=== PATIENT | male | born 1960 | race Two or more races ===

== ENCOUNTER 2017-11-11 15:57 | Inpatient (IN) | payer OTHER ==
[2017-11-11 16:14] VITALS: BMI 65.7
[2017-11-11] MEDS ORDERED: Sodium Chloride 0.9% 1,000 ML IV STA ×4 (16:33→23:13)
[2017-11-11 16:36] LABS: BASO % 0.7 % (0.0-2.0); EOS # 0.2 K/uL (0.0-0.7); EOS % 2.9 % (0.0-4.0); HEMOGLOBIN 8.7 g/dL (12.0-18.0); LYMPH # 2.3 K/uL (1.0-4.3); LYMPH % 36.7 % (20.0-40.0); MEAN CELL VOLUME 108.8 fl (80.0-94.0); MEAN CORPUSCULAR HGB CONC 34.9 g/dL (33.0-37.0); MEAN PLATELET VOLUME 9.8 fl (7.2-11.7); MONO # 0.4 K/uL (0.0-0.8); MONO % 5.8 % (0.0-10.0); NEUT # 3.4 K/uL (1.8-7.0); NEUT % 53.9 % (50.0-75.0); NRBC % 0.2 % (0.0-0.0); RBC 2.28 Mil/uL (4.40-5.90); RED CELL DISTRIBUTION WIDTH 13.5 % (11.5-14.5); WHITE BLOOD COUNT 6.4 K/uL (4.8-10.8)
[2017-11-11 16:38] LABS: VENOUS BLOOD GAS BASE EXCESS -2.2 mmol/L (0.0-2.0); VENOUS BLOOD GAS PCO2 47 mmHg (40-60); VENOUS BLOOD GAS PO2 40 mm/Hg (30-55); VENOUS BLOOD PH 7.32 (7.32-7.43)
[2017-11-11 16:38] LABS: INR 1.3; PROTHROMBIN TIME 14.5 Seconds (9.8-13.1)
[2017-11-11 16:41] LABS: PARTIAL THROMBOPLASTIN TIME 25.2 Seconds (25.6-37.1)
[2017-11-11 16:45] LABS: ALBUMIN 3.1 g/dL (3.5-5.0); ALT/SGPT 47 U/L (21-72); AST/SGOT 127 U/L (17-59); BLOOD UREA NITROGEN 16 mg/dl (9-20); CALCIUM 7.8 mg/dL (8.4-10.2); GFR NON-AFRICAN AMERICAN > 60
--- NOTE | 2017-11-11 17:05 | CT ---
Date of service: 11/11/2017 PROCEDURE: CT HEAD WITHOUT CONTRAST. HISTORY: r/o ICH COMPARISON: None available. TECHNIQUE: Axial computed tomography images were obtained through the head/brain without intravenous contrast. Radiation dose: Total exam DLP = 858.77 mGy-cm. This CT exam was performed using one or more of the following dose reduction techniques: Automated exposure control, adjustment of the mA and/or kV according to patient size, and/or use of iterative reconstruction technique. FINDINGS: HEMORRHAGE: No intracranial hemorrhage. BRAIN: There is no mass effect with minimal expansion of the ventricular sulcal sternal spaces appreciated throughout the cerebrum compatible with minimal diffuse cerebral atrophy. Good corticomedullary differentiation is appreciated throughout. Midline brain anatomy is unremarkable. Evaluation of posterior fossa reflects a 1.6 x 2.2 x 1.5 cm partially calcified lesion (transverse by anteroposterior by superoinferior dimensions) at the medial left cerebellum approximating the dentate nucleus there is no associated edema related to this cyst focus with the right dentate nucleus unremarkable appearing. This could reflect simply amorphous dentate nuclei calcification though other lesions such as postinfectious or inflammatory processes, intraparenchymal meningioma or angiomatous meningioma. Vascular and other etiologies are possible. Follow-up MRI is advised without contrast if there is no prior evaluation of this finding. VENTRICLES: Unremarkable. No hydrocephalus. CALVARIUM: Unremarkable. PARANASAL SINUSES: Unremarkable as visualized. No significant inflammatory changes. MASTOID AIR CELLS: Unremarkable as visualized. No inflammatory changes. OTHER FINDINGS: None. IMPRESSION: 1. 2.2 cm partially calcified lesion is identified at the left cerebellum partially involving the dentate nucleus with the right cerebellar hemisphere unremarkable. This is a nonspecific finding of indeterminate but potentially broad differential diagnostic etiology. Please see discussion above. Follow-up brain MRI without contrast is recommended under nonacute basis if not already evaluated. 2. No definite acute intracranial findings. Limited diffuse cerebral atrophy is appreciated, age-appropriate.
[2017-11-11] MEDS ORDERED: Tranexamic Acid 1,000 MG in Sodium Chloride 0.9% 100 ML IVPB STA ×3 (17:10→17:13)
[2017-11-11] MEDS ORDERED: Octreotide 500 mcg/ml Inj IV STA (17:12)
[2017-11-11] MEDS ORDERED: Sodium Chloride 0.9% 1,000 ML IV SCH (17:30)
--- NOTE | 2017-11-11 17:35 | ED PDOC ---
HPI: General Adult Time Seen by Provider: 11/11/17 16:13 Chief Complaint (Nursing): Syncope Chief Complaint (Provider): I passed out History Per: Patient, EMS, Other (work colleague) Current Symptoms Are (Timing): Intermittent Episodes Severity: Severe Additional Complaint(s): 57yo male hx HTN presents from his office where he had episode of syncope, falling hitting head, with blood noted in oropharynx. States this morning he felt dizzy and had blood in his stool. Denies abdominal pain, chest pain or headache. Does note dyspnea and dizziness currently. ALS EMS performed 12L EKG sinus tach w mild ST changes. Denies NSAID use or recent epigastric pain. Admits to drinking alcohol 3-4 days per week but denies withdrawal symptoms. Past Medical History Reviewed: Historical Data, Nursing Documentation, Vital Signs Vital Signs: Last Vital Signs Temp 99.3 F 11/12/17 08:00 Pulse 90 11/12/17 10:00 Resp 20 11/12/17 10:00 BP 112/62 11/12/17 10:00 Pulse Ox 100 11/12/17 10:00 - Medical History PMH: HTN - Surgical History Other surgeries: denies abd surgeries, +recent oral surgery - Family History Family History: States: Unknown Family Hx - Living Arrangements Living Arrangements: Other - Social History Current smoker - smoking cessation education provided: No Alcohol: Occasional Drugs: Denies - Home Medications Home Medications: Ambulatory Orders Medication Instructions Recorded Chlorthalidone [Hygroton] 12.5 mg PO DAILY 11/11/17 - Allergies Allergies/Adverse Reactions: Allergies Allergy/AdvReac Type Severity Reaction Status Date / Time No Known Allergies Allergy Verified 11/11/17 16:20 Review of Systems Constitutional: Positive for: Weakness Eyes: Negative for: Conjunctivae Inflammation ENT: Negative for: Throat Pain Cardiovascular: Positive for: Palpitations, Light Headedness. Negative for: Chest Pain Respiratory: Positive for: Shortness of Breath Gastrointestinal: Positive for: Abdominal Pain (mild), Hematochezia, Hematemesis Musculoskeletal: Negative for: Neck Pain Skin: Negative for: Rash, Lesions Neurological: Positive for: Weakness, Change in Speech, Dizziness Psych: Negative for: Depression Physical Exam - Reviewed Nursing Documentation Reviewed: Yes Vital Signs Reviewed: Yes - Physical Exam Appears: Positive for: Uncomfortable Head Exam: Positive for: ATRAUMATIC, NORMAL INSPECTION, NORMOCEPHALIC Skin: Positive for: Warm, Diaphoresis, Pallor Eye Exam: Positive for: EOMI, Normal appearance, PERRL ENT: Positive for: Normal ENT Inspection Neck: Positive for: Normal, Painless ROM Cardiovascular/Chest: Positive for: Tachycardia Respiratory: Positive for: CNT, Normal Breath Sounds Gastrointestinal/Abdominal: Positive for: Soft. Negative for: Tenderness Back: Positive for: Normal Inspection Rectal: Positive for: Blood Streaked Stool, Other (+gross blood at anus + hemorrhoid) Extremity: Positive for: Normal ROM Neurologic/Psych: Positive for: Alert, Oriented. Negative for: Motor/Sensory Deficits - Laboratory Results Result Diagrams: 11/12/17 04:20 11/12/17 04:20 - ECG ECG: Positive for: Interpreted By Me ECG Rhythm: Positive for: Sinus Tachycardia, Nonspecific Changes Rate: 107 O2 Sat by Pulse Oximetry: 100 Pulse Ox Interpretation: Normal - Radiology X-Ray: Interpreted by Or X-Ray Interpretation: No Acute Disease - CT Scan/US CT brain Other Rad Studies (CT/US): Radiology Report Reviewed (neg bleed, rec MRI brain for calcified lesion- to handle on floor nonemergently) - Physician Consult Information Physician Contacted: Mane Saenz Outcome Of Conversation: will see in ED - Critical Care Total Time (In Min): 75 Medical Decision Making Medical Decision Making: patient required immediate bedside attention for hypotension and tachycardia Further history from ALS paramedics, received about 250ml NS prehospital, BP slightly improved on arrival but remained diaphoretic ?hx head trauma with fall/ LOC and reported blood in nares/ oropharyx, CT brain ordered r/o ICH on arrival +blood at rectum, concern for acute GIB, IVF resuscitation w cardiac monitoring and PRBC cross match. labs reviewed revealing anemia, mild thrombocytopenia, neg trop, elevated lactate EKG sinus tach with likely rate related changes CXR reviewed no infiltrate or free air noted Attempted placement of NGT but had large episode hematemesis during procedure, suctioned, maintained airway. D/w PMD Dr Aguilar, requested Dr Saenz GI stat consult- discussed case, recommended octrotide, protonix drip, also given TXA. Patient had brief episode of dysarthria during TXA hence infusion stopped, unclear if related to infusion or mild cerebral ischemia from anemia and hypotension. Patient then had several large melanotic BMs, IVF continued in pressure bags and ONeg blood requested and initiated after consent obtained. BP marginal but mentation normal even asking RN to take picture of himself prior to transfer to OR. ICU Dr Rodgers in ED to see patient, Dr Saenz arrived and I discussed w anesthesia for stat endo in OR. Admit Dr Aguilar Disposition - Clinical Impression Clinical Impression: GI hemorrhage, Hematemesis, Syncope and collapse, Anemia - Patient ED Disposition Is Patient to be Admitted: Yes Counseled Patient/Family Regarding: Studies Performed - Disposition Disposition Time: 17:55 Condition: CRITICAL - Pt Status Changed To: Hospital Disposition Of: Inpatient - Admit Certification Admit to Inpatient:: After my assessment, the patient will require hospitalization for at least two midnights. This is because of the severity of symptoms shown, intensity of services needed, and/or the medical risk in this patient being treated as an outpatient. - POA Present On Arrival: Falls Or Trauma
[2017-11-11] MEDS ORDERED: Succinylcholine 200 mg/10 ml Inj IV ONE (17:52)
[2017-11-11] MEDS ORDERED: Etomidate 20 mg/10ml Inj IV ONE (17:52)
[2017-11-11] MEDS: Pantoprazole 40 MG in Sodium Chloride 0.9% 100 ML IVPB SCH ×3 (18:11→23:14)
[2017-11-11] MEDS ORDERED: Dexamethasone 4 mg/1 ml ONE (18:14)
[2017-11-11] MEDS ORDERED: Sodium Chloride 0.9% 1,000 ML IV ONE ×2 (18:30→19:12)
--- NOTE | 2017-11-11 18:43 | RAD ---
Date of service: 11/11/2017 HISTORY: SOB COMPARISON: No prior. FINDINGS: LUNGS: No active pulmonary disease. PLEURA: No significant pleural effusion identified, no pneumothorax apparent. CARDIOVASCULAR: Normal. OSSEOUS STRUCTURES: No significant abnormalities. VISUALIZED UPPER ABDOMEN: Normal. OTHER FINDINGS: None. IMPRESSION: No active disease.
[2017-11-11] MEDS ORDERED: EPINEPHrine 1 mg/ml (1:1000) Inj ONE (18:53)
--- NOTE | 2017-11-11 19:16 | CP.PCM.CON ---
History of Present Illness - History of Present Illness History of Present Illness: 57 yo male admitted after several episodes of hematemesis and hypotension. No h/ o cirrhosis but drinks beer 2 bottles 4x a week. No other hospitalizations as an adult. Review of Systems - Constitutional Constitutional: absent: Chills - EENT Eyes: absent: Blurred Vision Ears: absent: Decreased Hearing Nose/Mouth/Throat: absent: Epistaxis - Cardiovascular Cardiovascular: absent: Chest Pain - Respiratory Respiratory: absent: Dyspnea - Gastrointestinal Gastrointestinal: Loose Stools, Melena, Vomiting. absent: Abdominal Pain - Genitourinary Genitourinary: absent: Change in Urinary Stream Past Patient History - Past Social History Smoking Status: Light Smoker < 10 Cigarettes Daily - CARDIAC Hx Hypertension: Yes - PSYCHIATRIC Hx Substance Use: No - SURGICAL HISTORY Hx Surgeries: Yes Other/Comment: "oral surgery" Meds Allergies/Adverse Reactions: Allergies Allergy/AdvReac Type Severity Reaction Status Date / Time No Known Allergies Allergy Verified 11/11/17 16:20 - Medications Medications: Current Medications Pantoprazole Sodium 40 mg/ (Sodium Chloride) 100 mls @ 20 mls/hr IVPB Q5H CARMENCITA PRN Reason: 8 MG/HR Last Admin: 11/11/17 18:11 Dose: 20 mls/hr Octreotide Acetate 1,250 mcg/ (Sodium Chloride) 252.5 mls @ 10.1 mls/hr IV .Q24H CARMENCITA; 50 MCG/HR PRN Reason: Protocol Last Admin: 11/11/17 18:13 Dose: 10.1 mls/hr Sodium Chloride (Sodium Chloride 0.9%) 1,000 mls @ 1,000 mls/hr IV .Q1H ONE Stop: 11/11/17 19:29 Last Admin: 11/11/17 18:24 Dose: 1,000 mls/hr Physical Exam - Constitutional Appears: Non-toxic - Head Exam Head Exam: ATRAUMATIC - Eye Exam Pupil Exam: PERRL - ENT Exam ENT Exam: Normal Exam - Neck Exam Neck exam: Positive for: Normal Inspection - Respiratory Exam Respiratory Exam: NORMAL BREATHING PATTERN - Cardiovascular Exam Cardiovascular Exam: REGULAR RHYTHM, +S1, +S2 - GI/Abdominal Exam GI & Abdominal Exam: Normal Bowel Sounds, Soft. absent: Tenderness - Rectal Exam Rectal Exam: Bloody Stool Results - Vital Signs Recent Vital Signs: Last Vital Signs Temp 98.3 F 11/11/17 18:35 Pulse 106 H 11/11/17 18:35 Resp 16 11/11/17 18:35 BP 122/74 11/11/17 18:35 Pulse Ox 100 11/11/17 17:35 - Labs Result Diagrams: 11/11/17 16:20 11/11/17 16:20 Labs: Laboratory Results - last 24 hr 11/11/17 11/11/17 11/11/17 16:07 16:20 16:20 WBC 6.4 RBC 2.28 L Hgb 8.7 L Hct 24.8 L MCV 108.8 H MCH 38.0 H MCHC 34.9 RDW 13.5 Plt Count 125 L MPV 9.8 Neut % (Auto) 53.9 Lymph % (Auto) 36.7 [place] % (Auto) 5.8 Eos % (Auto) 2.9 Baso % (Auto) 0.7 Neut # (Auto) 3.4 Lymph # (Auto) 2.3 [place] # (Auto) 0.4 Eos # (Auto) 0.2 Baso # (Auto) 0.0 PT INR APTT pO2 VBG pH VBG pCO2 VBG HCO3 VBG Total CO2 VBG O2 Sat (Calc) VBG Base Excess VBG Potassium Glucose Lactate FiO2 Crit Value Called To Crit Value Called By Crit Value Read Back Blood Gas Notified Time Sodium 137 Potassium 3.5 L Chloride 105 Carbon Dioxide 21 L Anion Gap 15 BUN 16 Creatinine 1.0 Est GFR ( Amer) > 60 Est GFR (Non-Af Amer) > 60 POC Glucose (mg/dL) 294 H Random Glucose 285 H Calcium 7.8 L Total Bilirubin 0.5 AST 127 H ALT 47 Alkaline Phosphatase 67 Troponin I 0.0150 Total Protein 6.3 Albumin 3.1 L Globulin 3.2 Albumin/Globulin Ratio 1.0 Venous Blood Potassium Alcohol, Quantitative < 10 Blood Type Antibody Screen Crossmatch BBK History Checked 11/11/17 11/11/17 11/11/17 16:20 16:20 16:35 WBC RBC Hgb Hct MCV MCH MCHC RDW Plt Count MPV Neut % (Auto) Lymph % (Auto) [place] % (Auto) Eos % (Auto) Baso % (Auto) Neut # (Auto) Lymph # (Auto) [place] # (Auto) Eos # (Auto) Baso # (Auto) PT 14.5 H INR 1.3 APTT 25.2 L pO2 40 VBG pH 7.32 VBG pCO2 47 VBG HCO3 22.5 VBG Total CO2 25.6 VBG O2 Sat (Calc) 56.0 VBG Base Excess -2.2 L VBG Potassium 3.2 L Glucose 245 H Lactate 4.3 H* FiO2 21.0 Crit Value Called To Dr isabella yo Crit Value Called By 6075 Crit Value Read Back Y Blood Gas Notified Time 1638 Sodium 137.0 Potassium Chloride 105.0 Carbon Dioxide Anion Gap BUN Creatinine Est GFR ( Amer) Est GFR (Non-Af Amer) POC Glucose (mg/dL) Random Glucose Calcium Total Bilirubin AST ALT Alkaline Phosphatase Troponin I Total Protein Albumin Globulin Albumin/Globulin Ratio Venous Blood Potassium 3.2 L Alcohol, Quantitative Blood Type B NEGATIVE Antibody Screen Negative Crossmatch See Detail BBK History Checked No verified bt Assessment & Plan (1) Hematemesis Assessment and Plan: Labs suggest possibility of cirrhosis. protonix and Octreotide given. 3 units blood being tranfused. Will do emergency upper endoscopy for diagnosis and therapeutics Status: Acute
[2017-11-11] MEDS ORDERED: Midazolam 2 MG/2 ML VIAL ONE (19:39)
[2017-11-11] MEDS ORDERED: Propofol 10 mg/ml Inj (20 ML) ONE (19:46)
[2017-11-11] MEDS ORDERED: Liquid Adhesive TOP ONE (19:47)
--- NOTE | 2017-11-11 20:43 | CP.PCM.PN ---
Subjective - Date & Time of Evaluation Date of Evaluation: 11/11/17 Time of Evaluation: 22:22 - Subjective Subjective: 57 yo presents to ER with GI bleed and hemodynamic changes Objective - Vital Signs/Intake and Output Vital Signs (last 24 hours): Temp Pulse Resp BP Pulse Ox 98.3 F 102 H 22 146/90 100 11/11/17 18:55 11/11/17 18:55 11/11/17 18:55 11/11/17 18:55 11/11/17 18:55 Intake and Output: 11/11/17 11/12/17 18:59 06:59 Intake Total 0 850 Balance 0 850 - Medications Medications: Current Medications Pantoprazole Sodium 40 mg/ (Sodium Chloride) 100 mls @ 20 mls/hr IVPB Q5H CARMENCITA PRN Reason: 8 MG/HR Last Admin: 11/11/17 18:11 Dose: 20 mls/hr Octreotide Acetate 1,250 mcg/ (Sodium Chloride) 252.5 mls @ 10.1 mls/hr IV .Q24H CARMENCITA; 50 MCG/HR PRN Reason: Protocol Last Admin: 11/11/17 18:13 Dose: 10.1 mls/hr Sodium Chloride (Sodium Chloride 0.9%) 1,000 mls @ 100 mls/hr IV .Q10H STA Stop: 11/12/17 05:36 - Labs Labs: 11/11/17 16:20 11/11/17 16:20 PT 14.5 Seconds (9.8-13.1) H 11/11/17 16:20 INR 1.3 11/11/17 16:20 APTT 25.2 Seconds (25.6-37.1) L 11/11/17 16:20 Assessment and Plan - Assessment and Plan (Free Text) Assessment: GI Bleed Hypotension Liver dx??? ETOH?? IVF tX GI consult Syncope 2 to above EKG CE
--- NOTE | 2017-11-11 23:16 | CP.PCM.CON ---
History of Present Illness - History of Present Illness History of Present Illness: Attending: Yovani Ko Reason for Consult: Critical care management cCief Complaint: Syncope/ Hematemesis The Patient was seen and examined in the ICU Post EGD HPI: The Hx was obtained from the patient and after review of the medical chart. He is a 57 years Afro[place]Citizen Of [place] who drinks 2-3 drinks 3-4 days a week and has hx of HTN. He was brought to the ED after a Syncope and fall at his office. Blood was noted in his oropharynx. He stated that he was dizzy prior to the fall and had noticed blood in the stool. He also has pain to the left chest wall post fall, no abdominal pain, SOB fever nor dysuria. From the ED the patient was taken directly to the Endoscopic room where EDG was performed by Dr Saenz. PMH: HTN PSH: Oral surgery SH: Alcohol 2-3 drinks 3-4 days/week; No illegal drug use;No Cigarette smoking FH: State's: No known family hx Allergies: NKDA Medication: Reviewed Review of Systems - Constitutional Constitutional: Headache. absent: Anorexia, Chills - EENT Eyes: Requires Corrective Lenses. absent: Diplopia, Floaters Ears: absent: Decreased Hearing, Ear Discharge, Tinnitus Nose/Mouth/Throat: absent: Epistaxis, Nasal Discharge, Nasal Obstruction - Cardiovascular Cardiovascular: absent: Chest Pain, Dyspnea, Edema - Respiratory Respiratory: absent: Cough, Dyspnea, Wheezing, Snoring - Gastrointestinal Gastrointestinal: Hematemesis, Hematochezia. absent: Abdominal Pain, Constipation, Diarrhea - Genitourinary Genitourinary: absent: Flank Pain, Hematuria - Musculoskeletal Musculoskeletal: absent: Back Pain, Myalgias, Numbness - Integumentary Integumentary: absent: Skin Ulcer, Sores, Striae, Swelling - Neurological Neurological: absent: Confusion, Focal Weakness, Weakness - Psychiatric Psychiatric: absent: Anxiety, Depression, Panic Attacks - Endocrine Endocrine: absent: Palpitations, Polydipsia, Polyphagia, Polyuria - Hematologic/Lymphatic Hematologic: absent: Easy Bleeding, Easy Bruising Past Patient History - Past Medical History & Family History Past Medical History?: Yes - Past Social History Smoking Status: Light Smoker < 10 Cigarettes Daily Chewing Tobacco Use: No Cigar Use: No Alcohol: > 2 Drinks/Day Drugs: Denies - CARDIAC Hx Hypertension: Yes - PULMONARY Hx Respiratory Disorders: No - NEUROLOGICAL Hx Neurological Disorder: No - HEENT Hx HEENT Problems: No - RENAL Hx Chronic Kidney Disease: No - HEMATOLOGICAL/ONCOLOGICAL Hx Blood Disorders: No - INTEGUMENTARY Hx Dermatological Problems: No - MUSCULOSKELETAL/RHEUMATOLOGICAL Hx Falls: Yes (from low blood pressure,dizziness) - GASTROINTESTINAL Hx Gastrointestinal Disorders: No - GENITOURINARY/GYNECOLOGICAL Hx Genitourinary Disorders: No - PSYCHIATRIC Hx Psychophysiologic Disorder: No Hx Substance Use: No - SURGICAL HISTORY Hx Surgeries: Yes Other/Comment: "oral surgery" - ANESTHESIA Hx Anesthesia: Yes Hx Anesthesia Reactions: No Has any member of the family had a problem w/ anesthesia?: No Meds Allergies/Adverse Reactions: Allergies Allergy/AdvReac Type Severity Reaction Status Date / Time No Known Allergies Allergy Verified 11/11/17 16:20 - Medications Medications: Current Medications Pantoprazole Sodium 40 mg/ (Sodium Chloride) 100 mls @ 20 mls/hr IVPB Q5H CARMENCITA PRN Reason: 8 MG/HR Last Admin: 11/11/17 23:14 Dose: 20 mls/hr Octreotide Acetate 1,250 mcg/ (Sodium Chloride) 252.5 mls @ 10.1 mls/hr IV .Q24H CARMENCITA; 50 MCG/HR PRN Reason: Protocol Last Admin: 11/11/17 20:07 Dose: 10 mls Sodium Chloride (Sodium Chloride 0.9%) 1,000 mls @ 150 mls/hr IV .Q6H40M STA Stop: 11/12/17 03:11 Physical Exam - Constitutional Appears: No Acute Distress - Head Exam Head Exam: ATRAUMATIC, NORMAL INSPECTION, NORMOCEPHALIC - Eye Exam Eye Exam: EOMI, Normal appearance Pupil Exam: NORMAL ACCOMODATION, PERRL - ENT Exam ENT Exam: Mucous Membranes Dry, Normal Exam, Normal External Ear Exam - Neck Exam Neck exam: Positive for: Full Rom, Normal Inspection. Negative for: Lymphadenopathy - Respiratory Exam Respiratory Exam: Clear to Auscultation Bilateral. absent: Rales, Rhonchi, Wheezes - Cardiovascular Exam Cardiovascular Exam: Clicks, REGULAR RHYTHM, RRR, +S1, +S2. absent: JVD - GI/Abdominal Exam GI & Abdominal Exam: Normal Bowel Sounds, Soft. absent: Mass, Organomegaly - Rectal Exam Rectal Exam: Deferred - Extremities Exam Extremities exam: Positive for: full ROM, normal inspection. Negative for: calf tenderness, pedal edema - Back Exam Back exam: NORMAL INSPECTION. absent: CVA tenderness (L), CVA tenderness (R) - Neurological Exam Neurological exam: Alert, CN II-XII Intact, Oriented x3, Reflexes Normal - Psychiatric Exam Psychiatric exam: Normal Affect, Normal Mood - Skin Skin Exam: Dry, Intact, Normal Color Results - Vital Signs Recent Vital Signs: Last Vital Signs Temp 98.2 F 11/11/17 21:05 Pulse 103 H 11/11/17 21:40 Resp 18 11/11/17 21:40 BP 107/68 11/11/17 21:05 Pulse Ox 100 11/11/17 21:40 - Labs Result Diagrams: 11/11/17 16:20 11/11/17 16:20 Labs: Laboratory Results - last 24 hr 11/11/17 11/11/17 11/11/17 16:07 16:20 16:20 WBC 6.4 RBC 2.28 L Hgb 8.7 L Hct 24.8 L MCV 108.8 H MCH 38.0 H MCHC 34.9 RDW 13.5 Plt Count 125 L MPV 9.8 Neut % (Auto) 53.9 Lymph % (Auto) 36.7 [place] % (Auto) 5.8 Eos % (Auto) 2.9 Baso % (Auto) 0.7 Neut # (Auto) 3.4 Lymph # (Auto) 2.3 [place] # (Auto) 0.4 Eos # (Auto) 0.2 Baso # (Auto) 0.0 PT INR APTT pO2 VBG pH VBG pCO2 VBG HCO3 VBG Total CO2 VBG O2 Sat (Calc) VBG Base Excess VBG Potassium Glucose Lactate FiO2 Crit Value Called To Crit Value Called By Crit Value Read Back Blood Gas Notified Time Sodium 137 Potassium 3.5 L Chloride 105 Carbon Dioxide 21 L Anion Gap 15 BUN 16 Creatinine 1.0 Est GFR ( Amer) > 60 Est GFR (Non-Af Amer) > 60 POC Glucose (mg/dL) 294 H Random Glucose 285 H Calcium 7.8 L Total Bilirubin 0.5 AST 127 H ALT 47 Alkaline Phosphatase 67 Troponin I 0.0150 Total Protein 6.3 Albumin 3.1 L Globulin 3.2 Albumin/Globulin Ratio 1.0 Venous Blood Potassium Alcohol, Quantitative < 10 Blood Type Antibody Screen Crossmatch BBK History Checked 11/11/17 11/11/17 11/11/17 16:20 16:20 16:35 WBC RBC Hgb Hct MCV MCH MCHC RDW Plt Count MPV Neut % (Auto) Lymph % (Auto) [place] % (Auto) Eos % (Auto) Baso % (Auto) Neut # (Auto) Lymph # (Auto) [place] # (Auto) Eos # (Auto) Baso # (Auto) PT 14.5 H INR 1.3 APTT 25.2 L pO2 40 VBG pH 7.32 VBG pCO2 47 VBG HCO3 22.5 VBG Total CO2 25.6 VBG O2 Sat (Calc) 56.0 VBG Base Excess -2.2 L VBG Potassium 3.2 L Glucose 245 H Lactate 4.3 H* FiO2 21.0 Crit Value Called To Dr isabella yo Crit Value Called By 6075 Crit Value Read Back Y Blood Gas Notified Time 1638 Sodium 137.0 Potassium Chloride 105.0 Carbon Dioxide Anion Gap BUN Creatinine Est GFR ( Amer) Est GFR (Non-Af Amer) POC Glucose (mg/dL) Random Glucose Calcium Total Bilirubin AST ALT Alkaline Phosphatase Troponin I Total Protein Albumin Globulin Albumin/Globulin Ratio Venous Blood Potassium 3.2 L Alcohol, Quantitative Blood Type B NEGATIVE Antibody Screen Negative Crossmatch See Detail BBK History Checked No verified bt - Impressions Impression: Artifact Sinus Tachycardia 107/min - Imaging and Cardiology Chest x-ray Status: Image reviewed by me Additional comment: No infiltrate CT scan - head Status: Image reviewed by me, Report reviewed by me Additional comment: No definite intracraneal finding Assessment & Plan - Assessment and Plan (Free Text) Assessment: #. Syncope #. GI Bleed #. Anemia #. Hypokalemia #. Hyperglycemia Plan: 57 years Afro[place]Citizen Of [place] who drinks 2-3 drinks 3-4 days a week and has hx of HTN. He was brought to the ED after a Syncope and fall at his office. Blood was noted in his oropharynx and episodes of blood in the stool. From the ED the patient was taken directly to the Endoscopic room where EDG was performed by Dr Saenz. #. Syncope secondary to Orthostatic hypotension and Hypovolemia s/p GI bleed - CT Head: No Pathology - Treat GI bleed with Blood transfusion - #. GI Bleed - Dr Saenz GI on consult - EGD done: Showing clots in stomach/ No esophageal varices - Octreotide - Protonix IV drip - 2 units of PRBC transfused #. Anemia due to blood loss - PRBC transfusion - Follow HB #. Hypokalemia. Repleted - Continue Maintenance of KCL #. Hyperglycemia - follow HbA1c #. DVT Prophylaxis with SCD #. Code Status: Full - Date & Time Date: 11/11/17 Time: 23:16
[2017-11-12] MEDS: Pantoprazole 40 MG in Sodium Chloride 0.9% 100 ML IVPB SCH ×2 (04:20→08:40)
[2017-11-12 05:51] LABS: BASO % 0.3 % (0.0-2.0); EOS # 0.1 K/uL (0.0-0.7); EOS % 0.9 % (0.0-4.0); LYMPH # 1.9 K/uL (1.0-4.3); MEAN CELL VOLUME 99.5 fl (80.0-94.0); MEAN CORPUSCULAR HEMOGLOBIN 34.2 pg (27.0-31.0); MEAN CORPUSCULAR HGB CONC 34.4 g/dL (33.0-37.0); MEAN PLATELET VOLUME 9.8 fl (7.2-11.7); MONO % 7.2 % (0.0-10.0); NEUT # 10.6 K/uL (1.8-7.0); NEUT % 77.6 % (50.0-75.0); RBC 2.35 Mil/uL (4.40-5.90); RED CELL DISTRIBUTION WIDTH 20.5 % (11.5-14.5); WHITE BLOOD COUNT 13.6 K/uL (4.8-10.8)
--- NOTE | 2017-11-12 06:16 | CON ---
Copied To: Hans Rodgers MD Attending MD: Hans Rodgers MD DATE: 11/11/2017 CRITICAL CARE CONSULTATION LOCATION: The patient in ER, being admitted to ICU for further evaluation and followup. HISTORY OF PRESENT ILLNESS: History is obtained from the patient. Events in the ER are noted. Past medical, surgical, social, and family history reviewed. A 57-year-old male, current active smoker, alcohol dependent, drinks alcohol three to four days per week, about 212 ounce of beer, presented to emergency room via EMS after he had an episode of syncope in his office, noted to have blood in the oropharynx. A 12-lead EKG done by EMS in the field showed tachycardia with mild ST changes. In the ER, the patient's vital signs showed temperature 97.8, heart rate of 105 and regular, respiratory rate of 16, blood pressure 124/77, pulse oximetry 100% on room air. The patient's examination was significant for oriented to name, place, and time. Noted to be anxious and shaking. The patient was given 2 liters of IV fluid, started on octreotide drip after the bolus and Protonix drip. Type O blood being transfused. GI is called for endoscopic evaluation. The patient is admitted to ICU for follow-up care. PAST MEDICAL HISTORY: Significant for hypertension, has been on hydrochlorothiazide, started since last 2 months, has been compliant with his medications. Denies using any nonsteroidal anti-inflammatory medications. No prior history of upper GI bleeding. He reports that he has hemorrhoid/fissure, questionable [id number] but without active bleeding. ALLERGIES: HE IS NOT ALLERGIC TO ANY MEDICATIONS. FAMILY HISTORY: Noncontributory. SOCIAL HISTORY: As noted. MEDICATIONS AT HOME: Include hydrochlorothiazide 12.5 mg daily. PHYSICAL EXAMINATION: GENERAL: A middle-aged male, alert, awake; oriented to name, place, and time. VITAL SIGNS: Show temperature 97.8, heart rate 105, respiratory rate 16, blood pressure 124/77. HEAD, EYES, EARS, NOSE, AND THROAT: Pupils are reactive. Conjunctivae pink. Sclerae white. Oral mucosa moist. NECK: Supple. CHEST: Bilateral breath sounds clear to auscultation. HEART: Rhythm regular. S1, S2 rapid. No S3, S4, gallop. No audible murmur. ABDOMEN: Bowel sounds present. Soft. EXTREMITIES: No clubbing, cyanosis, or edema. No stigmata of IV drug use. NEUROLOGIC: Nonfocal. LABORATORY DATA: WBC 6.4, hemoglobin 8.7, hematocrit 24.8, platelet count of 125, MCV of 108.8, neutrophils 53.9, lymphocytes 36.7, monocytes 5.8. PT 14.5, INR 1.3, PTT of 25.2. VBG lactate of 4.3. SMA-7: Sodium 137, potassium 3.5, chloride 105, CO2 of 21, blood urea nitrogen 16, creatinine 1, random glucose 285, calcium is 7.8, total bilirubin 0.5, AST 127, ALT 47, alkaline phosphatase 67, troponin 0.0150, total protein 6.3, albumin 3.1. Alcohol less than [address] head shows 2.2 cm partially calcified lesion at the left cerebellum, partially involving the dentate nucleus with right cerebellar hemisphere, unremarkable. Definite acute intracranial findings noted. Chest x-ray shows no acute infiltrate. Cardiophrenic and costophrenic angles are clear. Heart is within normal limits. IMPRESSION: A 57-year-old male, active smoker, alcohol dependence, last drink two days ago, presented to emergency room after he passed out in the office, noted to have blood in the oropharynx. In ER, the patient has had two bouts of emesis, moderate to large amount. Hemoglobin on presentation was 8.7 with MCV 108.8, status post two liters of fluid and transfusion of packed red blood cells in progress. Given octreotide and on Protonix drip. Differential diagnosis include syncopal episode, possibly related to orthostatic hypotension, however, we will rule out other causes of syncopal episode. Initial troponin is negative. Likely upper gastrointestinal bleeding related to gastritis and/or Joan-Gould tear, history of hypertension, on hydrochlorothiazide, abnormal LFT with AST more than ALT, suggesting alcohol-related hepatitis, rule out. Once the patient becomes stable, evaluate further to rule out EtOH-related liver disease/cirrhosis. Continue hydration, transfusion of packed red blood cells to maintain a hemoglobin close to 10. Gastrointestinal evaluation requested, being arranged for esophagogastroduodenoscopy. 1. Neuro: No acute issues other than calcified density noted in the left cerebellum. We will evaluate further with MRI and neurology evaluation. 2. Cardiac: Orthostatic hypotension, status post fluid challenge and transfusion of packed cells in progress. 3. Renal: No acute issues. 4. Endocrine, hyperglycemia postprandial. We will follow up with fasting blood sugar to rule out diabetes. The patient had a visit 2 months ago in PMD's office, and reportedly had normal fasting blood sugar and no history of diabetes mellitus type 2 , no acute issues noted. Hold anticoagulation secondary to gastrointestinal bleeding. Continue Octreotide and Protonix drip. Hans Rodgers MD
[2017-11-12 06:41] LABS: ALB/GLOB RATIO 0.9 (1.0-2.1); ALBUMIN 2.5 g/dL (3.5-5.0); ALT/SGPT 43 U/L (21-72); AST/SGOT 77 U/L (17-59); BLOOD UREA NITROGEN 26 mg/dl (9-20); CALCIUM 6.9 mg/dL (8.4-10.2); GFR NON-AFRICAN AMERICAN > 60
--- NOTE | 2017-11-12 07:31 | CARD ---
APPROVED REPORT Date of service: 11/11/2017 <Conclusion> Sinus tachycardia Nonspecific ST abnormality Abnormal ECG
--- NOTE | 2017-11-12 10:01 | CP.CCUPN ---
Addendum entered and electronically signed by Carmen Flores MD 11/12/17 16: 49: Patient remains intubated PRVC RR 24, TV 500, PEEP 5, FiO2 100. Hemodynamically unstable A-line BP:42/23 Start Phenylephrine Addendum entered and electronically signed by Carmen Flores MD 11/12/17 15: 21: Called by nurse around 1:20p because pt had a large bright red vomiting and becoming unresponsive. Also patient had 1 large black stool. Patient becomes unresponsive, no pulses detected, code blue was called. During resuscitation patient received [address] Saenz on board, pt for scope. BP low levels Original Note: <Carmen Flores - Last Filed: 11/12/17 15:14> CCU Subjective - Physician Review Subjective (Free Text): Patient seen and examined today during morning rounds, reports feeling better, hungry, BP stable, HR 90s-100s. Afebrile. Denies abdominal pain, nausea, vomiting or bloody stools at this time. No urinary symptoms. CCU Objective - Vital Signs / Intake & Output Vital Signs (Last 4 hours): Vital Signs Temp Pulse Resp BP Pulse Ox 11/12/17 08:00 99.3 F 106 H 18 115/64 99 Intake and Output (Last 8hrs): Intake & Output 11/11/17 11/12/17 11/12/17 22:59 06:59 14:59 Intake Total 1492 1340 350 Output Total 1001 500 Balance 491 840 350 Weight 88.904 kg Intake: IV 530 1150 350 Intake, Piggyback 30 190 Blood Product 932 Apheresis Rbc Cp2d As3 Lr 325 1st Unit [id number] Red Blood Cells Cpd As1 325 Lr Unit [id number] Output: Urine 500 Urine, Voided 500 Stool 1000 Urine/Stool Mix 1 - Physical Exam Narrative Physical Exam (Free Text): Pleasant, no acute distress Head: Positive for: Normocephalic Pupils: Positive for: PERRL Extroacular Muscles: Positive for: EOMI Conjunctiva: Positive for: Normal Mouth: Positive for: Moist Mucous Membranes Respiratory/Chest: Positive for: Clear to Auscultation, Good Air Exchange. Negative for: Wheezes, Rales Cardiovascular: Positive for: Regular Rate and Rhythm, Tachycardic. Negative for: Murmurs Abdomen: Positive for: Normal Bowel Sounds. Negative for: Tenderness, Distention Lower Extremity: Positive for: Normal Inspection. Negative for: Edema, CALF TENDERNESS Neurological: Positive for: CN II-XII Intact Skin: Positive for: Warm, Dry, Normal Color Psychiatric: Positive for: Alert, Oriented x 3 - Medications Active Medications: Active Medications Generic Name Dose Route Start Last Admin Trade Name Freq PRN Reason Stop Dose Admin Pantoprazole Sodium 40 mg/ 100 mls @ 20 mls/hr 11/11/17 17:15 11/12/17 08:40 Sodium Chloride IVPB 20 mls/hr Q5H CARMENCITA Administration 8 MG/HR Octreotide Acetate 1,250 mcg/ 252.5 mls @ 10.1 mls/hr 11/11/17 17:15 20:07 Sodium Chloride IV 10 mls .Q24H CARMENCITA Administration Protocol 50 MCG/HR - Patient Studies Lab Studies: Lab Studies 11/12/17 11/12/17 11/11/17 Range/Units 04:20 04:20 19:20 WBC 13.6 H D (4.8-10.8) K/uL RBC 2.35 L (4.40-5.90) Mil/uL Hgb 8.0 L (12.0-18.0) g/dL Hct 23.4 L (35.0-51.0) % MCV 99.5 H D (80.0-94.0) fl MCH 34.2 H (27.0-31.0) pg MCHC 34.4 (33.0-37.0) g/dL RDW 20.5 H (11.5-14.5) % Plt Count 75 L D (130-400) K/uL MPV 9.8 (7.2-11.7) fl Neut % (Auto) 77.6 H (50.0-75.0) % Lymph % (Auto) 14.0 L (20.0-40.0) % [place] % (Auto) 7.2 (0.0-10.0) % Eos % (Auto) 0.9 (0.0-4.0) % Baso % (Auto) 0.3 (0.0-2.0) % Neut # (Auto) 10.6 H (1.8-7.0) K/uL Lymph # (Auto) 1.9 (1.0-4.3) K/uL [place] # (Auto) 1.0 H (0.0-0.8) K/uL Eos # (Auto) 0.1 (0.0-0.7) K/uL Baso # (Auto) 0.0 (0.0-0.2) K/uL PT (9.8-13.1) Seconds INR APTT (25.6-37.1) Seconds pO2 (30-55) mm/Hg VBG pH (7.32-7.43) VBG pCO2 (40-60) mmHg VBG HCO3 mmol/L VBG Total CO2 (22-28) mmol/L VBG O2 Sat (Calc) (40-65) % VBG Base Excess (0.0-2.0) mmol/L VBG Potassium (3.6-5.2) mmol/L Glucose (75-110) mg/dL Lactate (0.7-2.1) mmol/L FiO2 % Crit Value Called To Crit Value Called By Crit Value Read Back Blood Gas Notified Time Sodium 141 (132-148) mmol/l Potassium 4.0 (3.6-5.0) MMOL/L Chloride 113 H (98-107) mmol/L Carbon Dioxide 22 (22-30) mmol/L Anion Gap 10 (10-20) BUN 26 H (9-20) mg/dl Creatinine 0.7 L (0.8-1.5) mg/dl Est GFR ( Amer) > 60 Est GFR (Non-Af Amer) > 60 POC Glucose (mg/dL) (65-110) mg/dL Random Glucose 148 H (75-110) mg/dL Calcium 6.9 L (8.4-10.2) mg/dL Total Bilirubin 1.0 (0.2-1.3) mg/dl AST 77 H D (17-59) U/L ALT 43 (21-72) U/L Alkaline Phosphatase 47 (38-126) U/L Troponin I (0.00-0.120) ng/mL Total Protein 5.3 L (6.3-8.2) G/DL Albumin 2.5 L (3.5-5.0) g/dL Globulin 2.8 (2.2-3.9) gm/dL Albumin/Globulin Ratio 0.9 L (1.0-2.1) Venous Blood Potassium (3.6-5.2) mmol/L Alcohol, Quantitative (0-10) mg/dl Blood Type Blood Type Confirm B NEGATIVE Antibody Screen Crossmatch BBK History Checked 11/11/17 11/11/17 11/11/17 Range/Units 16:35 16:20 16:20 WBC (4.8-10.8) K/uL RBC (4.40-5.90) Mil/uL Hgb (12.0-18.0) g/dL Hct (35.0-51.0) % MCV (80.0-94.0) fl MCH (27.0-31.0) pg MCHC (33.0-37.0) g/dL RDW (11.5-14.5) % Plt Count (130-400) K/uL MPV (7.2-11.7) fl Neut % (Auto) (50.0-75.0) % Lymph % (Auto) (20.0-40.0) % [place] % (Auto) (0.0-10.0) % Eos % (Auto) (0.0-4.0) % Baso % (Auto) (0.0-2.0) % Neut # (Auto) (1.8-7.0) K/uL Lymph # (Auto) (1.0-4.3) K/uL [place] # (Auto) (0.0-0.8) K/uL Eos # (Auto) (0.0-0.7) K/uL Baso # (Auto) (0.0-0.2) K/uL PT 14.5 H (9.8-13.1) Seconds INR 1.3 APTT 25.2 L (25.6-37.1) Seconds pO2 40 (30-55) mm/Hg VBG pH 7.32 (7.32-7.43) VBG pCO2 47 (40-60) mmHg VBG HCO3 22.5 mmol/L VBG Total CO2 25.6 (22-28) mmol/L VBG O2 Sat (Calc) 56.0 (40-65) % VBG Base Excess -2.2 L (0.0-2.0) mmol/L VBG Potassium 3.2 L (3.6-5.2) mmol/L Glucose 245 H (75-110) mg/dL Lactate 4.3 H* (0.7-2.1) mmol/L FiO2 21.0 % Crit Value Called To Dr isabella yo Crit Value Called By 6075 Crit Value Read Back Y Blood Gas Notified Time 1638 Sodium 137.0 (132-148) mmol/l Potassium (3.6-5.0) MMOL/L Chloride 105.0 (98-107) mmol/L Carbon Dioxide (22-30) mmol/L Anion Gap (10-20) BUN (9-20) mg/dl Creatinine (0.8-1.5) mg/dl Est GFR ( Amer) Est GFR (Non-Af Amer) POC Glucose (mg/dL) (65-110) mg/dL Random Glucose (75-110) mg/dL Calcium (8.4-10.2) mg/dL Total Bilirubin (0.2-1.3) mg/dl AST (17-59) U/L ALT (21-72) U/L Alkaline Phosphatase (38-126) U/L Troponin I (0.00-0.120) ng/mL Total Protein (6.3-8.2) G/DL Albumin (3.5-5.0) g/dL Globulin (2.2-3.9) gm/dL Albumin/Globulin Ratio (1.0-2.1) Venous Blood Potassium 3.2 L (3.6-5.2) mmol/L Alcohol, Quantitative (0-10) mg/dl Blood Type B NEGATIVE Blood Type Confirm Antibody Screen Negative Crossmatch See Detail BBK History Checked No verified bt 11/11/17 11/11/17 11/11/17 Range/Units 16:20 16:20 16:07 WBC 6.4 (4.8-10.8) K/uL RBC 2.28 L (4.40-5.90) Mil/uL Hgb 8.7 L (12.0-18.0) g/dL Hct 24.8 L (35.0-51.0) % MCV 108.8 H (80.0-94.0) fl MCH 38.0 H (27.0-31.0) pg MCHC 34.9 (33.0-37.0) g/dL RDW 13.5 (11.5-14.5) % Plt Count 125 L (130-400) K/uL MPV 9.8 (7.2-11.7) fl Neut % (Auto) 53.9 (50.0-75.0) % Lymph % (Auto) 36.7 (20.0-40.0) % [place] % (Auto) 5.8 (0.0-10.0) % Eos % (Auto) 2.9 (0.0-4.0) % Baso % (Auto) 0.7 (0.0-2.0) % Neut # (Auto) 3.4 (1.8-7.0) K/uL Lymph # (Auto) 2.3 (1.0-4.3) K/uL [place] # (Auto) 0.4 (0.0-0.8) K/uL Eos # (Auto) 0.2 (0.0-0.7) K/uL Baso # (Auto) 0.0 (0.0-0.2) K/uL PT (9.8-13.1) Seconds INR APTT (25.6-37.1) Seconds pO2 (30-55) mm/Hg VBG pH (7.32-7.43) VBG pCO2 (40-60) mmHg VBG HCO3 mmol/L VBG Total CO2 (22-28) mmol/L VBG O2 Sat (Calc) (40-65) % VBG Base Excess (0.0-2.0) mmol/L VBG Potassium (3.6-5.2) mmol/L Glucose (75-110) mg/dL Lactate (0.7-2.1) mmol/L FiO2 % Crit Value Called To Crit Value Called By Crit Value Read Back Blood Gas Notified Time Sodium 137 (132-148) mmol/l Potassium 3.5 L (3.6-5.0) MMOL/L Chloride 105 (98-107) mmol/L Carbon Dioxide 21 L (22-30) mmol/L Anion Gap 15 (10-20) BUN 16 (9-20) mg/dl Creatinine 1.0 (0.8-1.5) mg/dl Est GFR ( Amer) > 60 Est GFR (Non-Af Amer) > 60 POC Glucose (mg/dL) 294 H (65-110) mg/dL Random Glucose 285 H (75-110) mg/dL Calcium 7.8 L (8.4-10.2) mg/dL Total Bilirubin 0.5 (0.2-1.3) mg/dl AST 127 H (17-59) U/L ALT 47 (21-72) U/L Alkaline Phosphatase 67 (38-126) U/L Troponin I 0.0150 (0.00-0.120) ng/mL Total Protein 6.3 (6.3-8.2) G/DL Albumin 3.1 L (3.5-5.0) g/dL Globulin 3.2 (2.2-3.9) gm/dL Albumin/Globulin Ratio 1.0 (1.0-2.1) Venous Blood Potassium (3.6-5.2) mmol/L Alcohol, Quantitative < 10 (0-10) mg/dl Blood Type Blood Type Confirm Antibody Screen Crossmatch BBK History Checked Laboratory Results - last 24 hr 11/11/17 11/11/17 11/11/17 16:07 16:20 16:20 WBC 6.4 RBC 2.28 L Hgb 8.7 L Hct 24.8 L MCV 108.8 H MCH 38.0 H MCHC 34.9 RDW 13.5 Plt Count 125 L MPV 9.8 Neut % (Auto) 53.9 Lymph % (Auto) 36.7 [place] % (Auto) 5.8 Eos % (Auto) 2.9 Baso % (Auto) 0.7 Neut # (Auto) 3.4 Lymph # (Auto) 2.3 [place] # (Auto) 0.4 Eos # (Auto) 0.2 Baso # (Auto) 0.0 PT INR APTT pO2 VBG pH VBG pCO2 VBG HCO3 VBG Total CO2 VBG O2 Sat (Calc) VBG Base Excess VBG Potassium Glucose Lactate FiO2 Crit Value Called To Crit Value Called By Crit Value Read Back Blood Gas Notified Time Sodium 137 Potassium 3.5 L Chloride 105 Carbon Dioxide 21 L Anion Gap 15 BUN 16 Creatinine 1.0 Est GFR ( Amer) > 60 Est GFR (Non-Af Amer) > 60 POC Glucose (mg/dL) 294 H Random Glucose 285 H Calcium 7.8 L Total Bilirubin 0.5 AST 127 H ALT 47 Alkaline Phosphatase 67 Troponin I 0.0150 Total Protein 6.3 Albumin 3.1 L Globulin 3.2 Albumin/Globulin Ratio 1.0 Venous Blood Potassium Alcohol, Quantitative < 10 Blood Type Blood Type Confirm Antibody Screen Crossmatch BBK History Checked 11/11/17 11/11/17 11/11/17 16:20 16:20 16:35 WBC RBC Hgb Hct MCV MCH MCHC RDW Plt Count MPV Neut % (Auto) Lymph % (Auto) [place] % (Auto) Eos % (Auto) Baso % (Auto) Neut # (Auto) Lymph # (Auto) [place] # (Auto) Eos # (Auto) Baso # (Auto) PT 14.5 H INR 1.3 APTT 25.2 L pO2 40 VBG pH 7.32 VBG pCO2 47 VBG HCO3 22.5 VBG Total CO2 25.6 VBG O2 Sat (Calc) 56.0 VBG Base Excess -2.2 L VBG Potassium 3.2 L Glucose 245 H Lactate 4.3 H* FiO2 21.0 Crit Value Called To Dr isabella yo Crit Value Called By 6075 Crit Value Read Back Y Blood Gas Notified Time 1638 Sodium 137.0 Potassium Chloride 105.0 Carbon Dioxide Anion Gap BUN Creatinine Est GFR ( Amer) Est GFR (Non-Af Amer) POC Glucose (mg/dL) Random Glucose Calcium Total Bilirubin AST ALT Alkaline Phosphatase Troponin I Total Protein Albumin Globulin Albumin/Globulin Ratio Venous Blood Potassium 3.2 L Alcohol, Quantitative Blood Type B NEGATIVE Blood Type Confirm Antibody Screen Negative Crossmatch See Detail BBK History Checked No verified bt 11/11/17 11/12/17 11/12/17 19:20 04:20 04:20 WBC 13.6 H D RBC 2.35 L Hgb 8.0 L Hct 23.4 L MCV 99.5 H D MCH 34.2 H MCHC 34.4 RDW 20.5 H Plt Count 75 L D MPV 9.8 Neut % (Auto) 77.6 H Lymph % (Auto) 14.0 L [place] % (Auto) 7.2 Eos % (Auto) 0.9 Baso % (Auto) 0.3 Neut # (Auto) 10.6 H Lymph # (Auto) 1.9 [place] # (Auto) 1.0 H Eos # (Auto) 0.1 Baso # (Auto) 0.0 PT INR APTT pO2 VBG pH VBG pCO2 VBG HCO3 VBG Total CO2 VBG O2 Sat (Calc) VBG Base Excess VBG Potassium Glucose Lactate FiO2 Crit Value Called To Crit Value Called By Crit Value Read Back Blood Gas Notified Time Sodium 141 Potassium 4.0 Chloride 113 H Carbon Dioxide 22 Anion Gap 10 BUN 26 H Creatinine 0.7 L Est GFR ( Amer) > 60 Est GFR (Non-Af Amer) > 60 POC Glucose (mg/dL) Random Glucose 148 H Calcium 6.9 L Total Bilirubin 1.0 AST 77 H D ALT 43 Alkaline Phosphatase 47 Troponin I Total Protein 5.3 L Albumin 2.5 L Globulin 2.8 Albumin/Globulin Ratio 0.9 L Venous Blood Potassium Alcohol, Quantitative Blood Type Blood Type Confirm B NEGATIVE Antibody Screen Crossmatch BBK History Checked EKG/Cardiology Studies: Cardiology / EKG Studies 11/11/17 16:14 ELECTROCARDIOGRAM Stat Comment: Mode Of Transportation: Reason For Exam: syncope Fingerstick Blood Sugar Results: 294 Review of Systems - Review of Systems All systems: reviewed and no additional remarkable complaints except (As per HPI ) Critical Care Progress Note - Nutrition Nutrition: Nutrition Category Date Time Status NPO Diet [DIET] Diets 11/11/17 Dinner Active Assessment/Plan - Assessment and Plan (Free Text) Assessment: 57 yo male patient with PMH of HTN admitted due to upper GI bleeding and syncope. Patient underwent emergent EGD last night that showed Joan-Gould. S/ P 3 units of PRBC. 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 - s/p EGD and cauterization - s/p 3 units PRBC - Full liquid diet. - GI on board: Dr Cassidy recommds appreciated. - Continue Octreotide and Protonix drips. - IV fluids - f/u cbc, bmp, coag, lactate - hemodynamically stable, waiting transfer to Telemetry. Anemia - likely secondary to blood loss - H/H 8.0/23.4 - s/p PRBC 3 units. - f/u CBC Alcohol abuse - 3-4 drinks 4-5 days per week. - No withdrawal symptoms. DVT prophylaxis - SCD <Ravindra Smiley - Last Filed: 11/12/17 22:54> CCU Subjective - Physician Review Subjective (Free Text): Attestation: Patient seen and examined at the bedside with Resident Dr. Gordo Flores; and I agree with her outline of plans and management documented below as discussed on AM rounds reflecting my review of all applicable clinical data, and participation in the care of the patient throughout the day in ICU; today, November 12, 2017. Time spent with this patient did not overlap with any other provider's medical or critical care time. Additionally the code selected for the services rendered in this note includes the time spent: talking to the patients family, associated physicians and reviewing hospital data/results not listed here which extended to a total of 70 minutes.
[2017-11-12] MEDS ORDERED: Sodium Chloride 0.9% 1,000 ML IV SCH (11:30)
[2017-11-12 12:17] VITALS: RESP 23
[2017-11-12 12:19] LABS: INR 1.2; PROTHROMBIN TIME 13.2 Seconds (9.8-13.1)
[2017-11-12 12:22] LABS: PARTIAL THROMBOPLASTIN TIME 22.6 Seconds (25.6-37.1)
[2017-11-12 12:36] LABS: BLOOD UREA NITROGEN 19 mg/dl (9-20); CALCIUM 7.1 mg/dL (8.4-10.2); GFR NON-AFRICAN AMERICAN > 60
[2017-11-12 14:34] LABS: ABG ALLEN TEST YES; ARTERIAL BLOOD GAS HCO3 9.7 mmol/L (21-28); ARTERIAL BLOOD GAS O2 SAT 95.3 % (95-98); ARTERIAL BLOOD GAS PCO2 80 mm/Hg (35-45); ARTERIAL BLOOD GAS PH 6.83 (7.35-7.45); ARTERIAL BLOOD GAS PO2 81 mm/Hg (80-100); ARTERIAL BLOOD GAS TCO2 15.8 mmol/L (22-28)
--- NOTE | 2017-11-12 15:31 | RAD ---
Date of service: 11/12/2017 HISTORY: assess for free air COMPARISON: No prior. FINDINGS: BOWEL: Moderate colonic-is distension noted. This also right-sided stool present. The visualized small bowel loops are mostly in the right abdomen and not particularly dilated. The rectosigmoid is slightly redundant with moderate gas present. The left colon is partly collapsed on 1 of the two views. The distal rectosigmoid colon is believe moderately distended. Because of this no singular high-grade obstruction is bleed present. Clinical correlation continued follow-up recommended. BONES: Normal. OTHER FINDINGS: Extrinsic pacer device suggested A thin catheter project diagonally over the right hemipelvis correlate clinically A a NG tube tip is seen in the far lateral right gastric antrum/ outlet location IMPRESSION: Moderate colonic- gaseous distension. Nonspecific. Bowel-gas pattern. . Gas within non distended distal small bowel loops. Clinical correlation follow-up. NG tube in far lateral right gastric outlet location A thin catheter project diagonally over the right hemipelvis correlate clinically
[2017-11-12] MEDS ORDERED: Phenylephrine 60 MG in Sodium Chloride 0.9% 250 ML IV SCH (16:00)
--- NOTE | 2017-11-12 16:05 | RAD ---
Date of service: 11/12/2017 HISTORY: ET tube placement COMPARISON: 11/11/2017. FINDINGS: Endotracheal tube terminates 5 cm proximal to the rodger. The nasogastric tube terminates in the stomach. LUNGS: The lungs are well inflated. There is patchy airspace disease in both lower lobes, worse on the right PLEURA: No significant pleural effusion identified, no pneumothorax apparent. CARDIOVASCULAR: Normal. OSSEOUS STRUCTURES: No significant abnormalities. VISUALIZED UPPER ABDOMEN: Normal. OTHER FINDINGS: None. IMPRESSION: Endotracheal tube terminates 5 cm proximal to the rodger. The nasogastric tube terminates in the stomach. Patchy airspace disease in the lower lobes, worse on the right may represent atelectasis or pneumonia. Follow-up is advised.
--- NOTE | 2017-11-12 16:10 | CP.PCM.CON ---
History of Present Illness - History of Present Illness History of Present Illness: General surgery consult note for Dr. Quiana Hoover, PGY-2 Pt S & E at bedside at 1540- pt intubated, not sedated. History as per EMR & ICU staff. 57M admitted to hospital w/near syncopal episode, bloody BM & emesis, was hypotensive & tachycardic in ED. Records indicate large volume hematemesis with attempted NGT placement in ED, several large melanotic BMs. Started on Protonix drip, octreotide. Hgb on admission - 8.0, given 3 units pRBCs, corrected to 8.7. Taken for emergent EGD with finding of small Joan Gould tear, blood clot in stomach. Per GI, Ocreotide drip, Protonix drip were d/c'd after EGD, NS decreased to 100cc/hr. Pt placed on FLD for lunch, was conversant on telephone and interacting with staff. Per ICU, pt with large volume hematemesis and hematochezia after lunch, pt became hypotensive, bradycardic, unresponsive, pulseless. Code blue ran with eventual ROSC, pt intubated, did not require sedation. OGT with 1 L sanginous output to container. Pt given 5 units pRBCs, 1 FFP, severely hypotensive at bedside- A line with BP 43/24. ICU plans to start phenylephrine, give another FFP. PRVC RR 22, TV 500, PEEP 5, FiO2 100% PMH: HTN PSH: Unknown All: NKDA SH: ETOH use - 3-4 days per wk Review of Systems - Review of Systems Systems not reviewed;Unavailable: Intubated Past Patient History - Past Medical History & Family History Past Medical History?: Yes - Past Social History Alcohol: Occasional Drugs: Denies - CARDIAC Hx Hypertension: Yes - MUSCULOSKELETAL/RHEUMATOLOGICAL Hx Falls: Yes (from low blood pressure,dizziness) - PSYCHIATRIC Hx Substance Use: No - SURGICAL HISTORY Hx Surgeries: Yes Other/Comment: "oral surgery" Meds Allergies/Adverse Reactions: Allergies Allergy/AdvReac Type Severity Reaction Status Date / Time No Known Allergies Allergy Verified 11/11/17 16:20 - Medications Medications: Current Medications Sodium Chloride (Sodium Chloride 0.9%) 1,000 mls @ 100 mls/hr IV .Q10H CARMENCITA Stop: 11/13/17 11:18 Last Admin: 11/12/17 11:24 Dose: 100 mls/hr Phenylephrine HCl 60 mg/ (Sodium Chloride) 256 mls @ 5.11 mls/hr IV .Q24H CARMENCITA; 20 MCG/MIN PRN Reason: Protocol Stop: 11/13/17 15:48 Last Admin: 11/12/17 16:03 Dose: 20 mcg/min, 5.11 mls/hr Pantoprazole Sodium (Protonix Inj) 40 mg IVP BID CARMENCITA Physical Exam - Constitutional Appears: No Acute Distress - Head Exam Head Exam: ATRAUMATIC, NORMAL INSPECTION, NORMOCEPHALIC - Eye Exam Eye Exam: absent: EOMI, Normal appearance Pupil Exam: Fixed, Mydriatic. absent: NORMAL ACCOMODATION, PERRL - ENT Exam ENT Exam: Mucous Membranes Moist - Respiratory Exam Respiratory Exam: NORMAL BREATHING PATTERN - Cardiovascular Exam Cardiovascular Exam: REGULAR RHYTHM, +S1, +S2 - GI/Abdominal Exam GI & Abdominal Exam: Soft. absent: Distended, Guarding - Extremities Exam Extremities exam: Positive for: normal inspection - Neurological Exam Additional comments: GCS 3T - Psychiatric Exam Additional comments: intubated, not sedated, unresponsive to noxious or verbal stimuli - Skin Additional comments: Spots of blood over lateral face Results - Vital Signs Recent Vital Signs: Last Vital Signs Temp 98.9 F 11/12/17 12:00 Pulse 153 H 11/12/17 16:03 Resp 23 11/12/17 12:00 BP 42/22 L 11/12/17 16:03 Pulse Ox 100 11/12/17 12:27 - Labs Result Diagrams: 11/12/17 16:15 11/12/17 12:08 Labs: Laboratory Results - last 24 hr 11/11/17 11/11/17 11/11/17 16:07 16:20 16:20 WBC 6.4 RBC 2.28 L Hgb 8.7 L Hct 24.8 L MCV 108.8 H MCH 38.0 H MCHC 34.9 RDW 13.5 Plt Count 125 L MPV 9.8 Neut % (Auto) 53.9 Lymph % (Auto) 36.7 [place] % (Auto) 5.8 Eos % (Auto) 2.9 Baso % (Auto) 0.7 Neut # (Auto) 3.4 Lymph # (Auto) 2.3 [place] # (Auto) 0.4 Eos # (Auto) 0.2 Baso # (Auto) 0.0 PT INR APTT pCO2 pO2 HCO3 ABG pH ABG Total CO2 ABG O2 Saturation ABG Base Excess Jenaro Test ABG Potassium VBG pH VBG pCO2 VBG HCO3 VBG Total CO2 VBG O2 Sat (Calc) VBG Base Excess VBG Potassium A-a O2 Difference Glucose Lactate Vent Mode FiO2 Crit Value Called To Crit Value Called By Crit Value Read Back Blood Gas Notified Time Sodium 137 Potassium 3.5 L Chloride 105 Carbon Dioxide 21 L Anion Gap 15 BUN 16 Creatinine 1.0 Est GFR ( Amer) > 60 Est GFR (Non-Af Amer) > 60 POC Glucose (mg/dL) 294 H Random Glucose 285 H Hemoglobin A1c Lactic Acid Calcium 7.8 L Total Bilirubin 0.5 AST 127 H ALT 47 Alkaline Phosphatase 67 Troponin I 0.0150 Total Protein 6.3 Albumin 3.1 L Globulin 3.2 Albumin/Globulin Ratio 1.0 Arterial Blood Potassium Venous Blood Potassium Alcohol, Quantitative < 10 Blood Type Blood Type Confirm Antibody Screen Crossmatch BBK History Checked 11/11/17 11/11/17 11/11/17 16:20 16:20 16:35 WBC RBC Hgb Hct MCV MCH MCHC RDW Plt Count MPV Neut % (Auto) Lymph % (Auto) [place] % (Auto) Eos % (Auto) Baso % (Auto) Neut # (Auto) Lymph # (Auto) [place] # (Auto) Eos # (Auto) Baso # (Auto) PT 14.5 H INR 1.3 APTT 25.2 L pCO2 pO2 40 HCO3 ABG pH ABG Total CO2 ABG O2 Saturation ABG Base Excess Jenaro Test ABG Potassium VBG pH 7.32 VBG pCO2 47 VBG HCO3 22.5 VBG Total CO2 25.6 VBG O2 Sat (Calc) 56.0 VBG Base Excess -2.2 L VBG Potassium 3.2 L A-a O2 Difference Glucose 245 H Lactate 4.3 H* Vent Mode FiO2 21.0 Crit Value Called To Dr isabella yo Crit Value Called By 6075 Crit Value Read Back Y Blood Gas Notified Time 1638 Sodium 137.0 Potassium Chloride 105.0 Carbon Dioxide Anion Gap BUN Creatinine Est GFR ( Amer) Est GFR (Non-Af Amer) POC Glucose (mg/dL) Random Glucose Hemoglobin A1c Lactic Acid Calcium Total Bilirubin AST ALT Alkaline Phosphatase Troponin I Total Protein Albumin Globulin Albumin/Globulin Ratio Arterial Blood Potassium Venous Blood Potassium 3.2 L Alcohol, Quantitative Blood Type B NEGATIVE Blood Type Confirm Antibody Screen Negative Crossmatch See Detail BBK History Checked No verified bt 11/11/17 11/12/17 11/12/17 19:20 04:20 04:20 WBC 13.6 H D RBC 2.35 L Hgb 8.0 L Hct 23.4 L MCV 99.5 H D MCH 34.2 H MCHC 34.4 RDW 20.5 H Plt Count 75 L D MPV 9.8 Neut % (Auto) 77.6 H Lymph % (Auto) 14.0 L [place] % (Auto) 7.2 Eos % (Auto) 0.9 Baso % (Auto) 0.3 Neut # (Auto) 10.6 H Lymph # (Auto) 1.9 [place] # (Auto) 1.0 H Eos # (Auto) 0.1 Baso # (Auto) 0.0 PT INR APTT pCO2 pO2 HCO3 ABG pH ABG Total CO2 ABG O2 Saturation ABG Base Excess Jenaro Test ABG Potassium VBG pH VBG pCO2 VBG HCO3 VBG Total CO2 VBG O2 Sat (Calc) VBG Base Excess VBG Potassium A-a O2 Difference Glucose Lactate Vent Mode FiO2 Crit Value Called To Crit Value Called By Crit Value Read Back Blood Gas Notified Time Sodium 141 Potassium 4.0 Chloride 113 H Carbon Dioxide 22 Anion Gap 10 BUN 26 H Creatinine 0.7 L Est GFR ( Amer) > 60 Est GFR (Non-Af Amer) > 60 POC Glucose (mg/dL) Random Glucose 148 H Hemoglobin A1c Lactic Acid Calcium 6.9 L Total Bilirubin 1.0 AST 77 H D ALT 43 Alkaline Phosphatase 47 Troponin I Total Protein 5.3 L Albumin 2.5 L Globulin 2.8 Albumin/Globulin Ratio 0.9 L Arterial Blood Potassium Venous Blood Potassium Alcohol, Quantitative Blood Type Blood Type Confirm B NEGATIVE Antibody Screen Crossmatch BBK History Checked 11/12/17 11/12/17 11/12/17 05:00 12:08 12:08 WBC RBC Hgb Hct MCV MCH MCHC RDW Plt Count MPV Neut % (Auto) Lymph % (Auto) [place] % (Auto) Eos % (Auto) Baso % (Auto) Neut # (Auto) Lymph # (Auto) [place] # (Auto) Eos # (Auto) Baso # (Auto) PT 13.2 H INR 1.2 APTT 22.6 L pCO2 pO2 HCO3 ABG pH ABG Total CO2 ABG O2 Saturation ABG Base Excess Jenaro Test ABG Potassium VBG pH VBG pCO2 VBG HCO3 VBG Total CO2 VBG O2 Sat (Calc) VBG Base Excess VBG Potassium A-a O2 Difference Glucose Lactate Vent Mode FiO2 Crit Value Called To Crit Value Called By Crit Value Read Back Blood Gas Notified Time Sodium Potassium Chloride Carbon Dioxide Anion Gap BUN Creatinine Est GFR ( Amer) Est GFR (Non-Af Amer) POC Glucose (mg/dL) Random Glucose Hemoglobin A1c 5.6 Lactic Acid 1.4 Calcium Total Bilirubin AST ALT Alkaline Phosphatase Troponin I Total Protein Albumin Globulin Albumin/Globulin Ratio Arterial Blood Potassium Venous Blood Potassium Alcohol, Quantitative Blood Type Blood Type Confirm Antibody Screen Crossmatch BBK History Checked 11/12/17 11/12/17 12:08 14:30 WBC RBC Hgb Hct MCV MCH MCHC RDW Plt Count MPV Neut % (Auto) Lymph % (Auto) [place] % (Auto) Eos % (Auto) Baso % (Auto) Neut # (Auto) Lymph # (Auto) [place] # (Auto) Eos # (Auto) Baso # (Auto) PT INR APTT pCO2 80 H* pO2 81 HCO3 9.7 L* ABG pH 6.83 L* ABG Total CO2 15.8 L ABG O2 Saturation 95.3 ABG Base Excess -19.5 L Jenaro Test Yes ABG Potassium 4.2 VBG pH VBG pCO2 VBG HCO3 VBG Total CO2 VBG O2 Sat (Calc) VBG Base Excess VBG Potassium A-a O2 Difference 532.0 Glucose 239 H Lactate 17.2 H* Vent Mode Ambu bag FiO2 100.0 Crit Value Called To Dr grant Crit Value Called By Rt Crit Value Read Back Y Blood Gas Notified Time 1427 Sodium 138 144.0 Potassium 3.4 L Chloride 112 H 107.0 Carbon Dioxide 23 Anion Gap 6 L BUN 19 Creatinine 0.7 L Est GFR ( Amer) > 60 Est GFR (Non-Af Amer) > 60 POC Glucose (mg/dL) Random Glucose 145 H Hemoglobin A1c Lactic Acid Calcium 7.1 L Total Bilirubin AST ALT Alkaline Phosphatase Troponin I Total Protein Albumin Globulin Albumin/Globulin Ratio Arterial Blood Potassium 4.2 Venous Blood Potassium Alcohol, Quantitative Blood Type Blood Type Confirm Antibody Screen Crossmatch BBK History Checked Assessment & Plan - Assessment and Plan (Free Text) Assessment: 57M w/severe GI bleeding, currently unstable in ICU Plan: Recommend aggressive resuscitation- blood & fluids CT angio to localize bleeding Recommend IR consult Medical optimization No current surgical intervention at this time DW attending Sneha, PGY-2 - Date & Time Date: 11/12/17 Time: 16:10
[2017-11-12 16:23] LABS: HEMOGLOBIN 7.1 g/dL (12.0-18.0); MEAN CELL VOLUME 97.4 fl (80.0-94.0); MEAN CORPUSCULAR HGB CONC 32.8 g/dL (33.0-37.0); RBC 2.22 Mil/uL (4.40-5.90); WHITE BLOOD COUNT 5.8 K/uL (4.8-10.8)
[2017-11-12 16:26] LABS: ABG ALLEN TEST YES; ARTERIAL BLOOD GAS HCO3 8.4 mmol/L (21-28); ARTERIAL BLOOD GAS O2 SAT 99.3 % (95-98); ARTERIAL BLOOD GAS PCO2 59 mm/Hg (35-45); ARTERIAL BLOOD GAS PH 6.92 (7.35-7.45); ARTERIAL BLOOD GAS PO2 84 mm/Hg (80-100); ARTERIAL BLOOD GAS TCO2 13.9 mmol/L (22-28)
[2017-11-12] MEDS ORDERED: EPINEPHrine 1 mg/ml (1:1000) Inj ONE (16:31)
[2017-11-12 16:52] VITALS: BP 38/22; PULSE 27; TEMP 97.9; O2SAT 96
--- NOTE | 2017-11-12 16:53 | CP.CCUPN ---
CCU Subjective - Physician Review Subjective (Free Text): Code Blue Note: Code called after sudden and progressive bradycardia associated with acute onset of massive bright red hematemsis and hematochieza. After vomiting, became hypotensive, with shallow breathing and progressive bradycardia with loss of palpable pulses. This occurred soon aftr emergent TLC placed into R femoral vein for STAT access for rapid administration of IVFs and blood products. CPR / ACLS started immediately, high quality chest compressions ensured and maintained. Multiple doses of Epinephrine, Atropine and later Bicarbonate given , as well as vasopressor infusions of dopamine to improve HR and BP, later changed to Norepinephrine. Additional fluid challenges with saline given as well. Additional blood products ordered and given as significant bloody output noted from OGT placement amounting to approx 800ml. Total of 3 units PRBCs and 2 units FFP given before jainism of palpable BPs noted. During the course of resuscitation, patient orally intubated for airway protection and extreme shallow breathig with near-apnea at times. Multiple clots of blood suctioned from oropharynx prior to ETT passage. Post-resuscitation, patient noted to be comatose, GCS 3T, and vasopressor dependent on near-max doses of Norepinephrine.
--- NOTE | 2017-11-12 16:59 | PCM.PROC ---
Procedures Attestation:: I certify that I have explained the specified Operation(s) or Procedure(s), risks, benefits and reasonable alternatives to the Patient and/or other person responsible. The opportunity was given to ask questions and all questions answered - Central Line Placement Right Femoral Triple Lumen Catheter Aseptic technique was employed throughout the procedure: Hand Hygiene done prior to procedure, Full sterile barriers (mask, hair cover, sterile gown, sterile gloves), Chloraprep Antiseptic: 2 minute prep for Femoral CVP Time Out Performed: Yes Pt. Placed on Pulse Ox Monitor: Yes Central Line Prep: Chlorhexidine-Alcohol Combination Ultrasound Used for Placement: No Central Line Lumen Inserted: triple Central Line Length: 20 cm Post Procedure: Sutured in Place, Good Blood Return, All Ports Aspirated, Flushed, Capped, Sterile Dressing Applied Secured by: Suture Post procedure dressing: Clear vapor permeable, Chlorhexidine disc (Biopatch) Post Procedure X-Ray: No Patient Tolerated Procedure: Well Immediate Complications: None Additional Comments: Procedure done under emergent conditions in ICU for shock state, and rapid infusion of fluids, vasopressors and blood products,
[2017-11-12] MEDS ORDERED: Sodium Bicarbonate 7.5% (0.9 MEQ/ML) 50ML INJ IV ONE (17:00)
--- NOTE | 2017-11-12 17:01 | PCM.PROC ---
Procedures Attestation:: I certify that I have explained the specified Operation(s) or Procedure(s), risks, benefits and reasonable alternatives to the Patient and/or other person responsible. The opportunity was given to ask questions and all questions answered - Intubation Time Out Performed: Yes Sedative: None Laryngoscope: Emily (#3) ET Tube Size: 8.0 ET Tube Uncuffed: No (cuff balloon inflated with 9 ml air. ) ET Tube Secured at Depth: 23 ET Tube Placement Confirmation: Visualized Passing Through Cords, Breath Sounds Equal Bilaterally, No Breath Sounds Over Epigastrum, Confirmation w/Capnometry Patient Tolerated Procedure: Well Procedure Immediate Complications: None Additional comments: Procedure done under emergent conditions in ICU for airway protection, and shallow breathing / near-apnea.
--- NOTE | 2017-11-12 17:06 | PCM.PROC ---
Procedures Attestation:: I certify that I have explained the specified Operation(s) or Procedure(s), risks, benefits and reasonable alternatives to the Patient and/or other person responsible. The opportunity was given to ask questions and all questions answered - Arterial Line Left Femoral Aseptic technique was employed throughout the procedure: Hand Hygiene done prior to procedure, Full body sterile drape, Chloraprep Antiseptic: 2 minute prep for Femoral Time Out Performed: Yes Pt. placed on Pulse Ox Monitor: Yes Central Line Prep: Chlorhexidine-Alcohol Combination Ultrasound Used for Placement: No Gauge (Size): 20 gauge (6 inch angiocath) Technique Used: Guide Wire Technique Secured by: Suture Post procedure dressing: Gauze, Clear vapor permeable, Chlorhexidine disc ( Biopatch) Immediate Complications: none Additional Comments: Procedure done under emergent conditions in ICU for shock state, and beat-to- beat measurements of BP to allow for vasopressor infusion titration.,
[2017-11-12] MEDS ORDERED: EPINEPHrine 1 mg/ml (1:1000) Inj IM ONE (17:25)
--- NOTE | 2017-11-12 18:10 | CP.PCM.HP ---
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 Present on Admission - Present on Admission Any Indicators Present on Admission: No Past Patient History - Past Medical History & Family History Past Medical History?: Yes - Past Social History Alcohol: Occasional Drugs: Denies - CARDIAC Hx Hypertension: Yes - MUSCULOSKELETAL/RHEUMATOLOGICAL Hx Falls: Yes (from low blood pressure,dizziness) - PSYCHIATRIC Hx Substance Use: No - SURGICAL HISTORY Hx Surgeries: Yes Other/Comment: "oral surgery" Meds Allergies/Adverse Reactions: Allergies Allergy/AdvReac Type Severity Reaction Status Date / Time No Known Allergies Allergy Verified 11/11/17 16:20 Physical Exam - Respiratory Exam Respiratory Exam: NORMAL BREATHING PATTERN - Cardiovascular Exam Cardiovascular Exam: REGULAR RHYTHM - GI/Abdominal Exam GI & Abdominal Exam: Normal Bowel Sounds Results - Vital Signs Recent Vital Signs: Last Vital Signs Temp 97.9 F 11/12/17 16:50 Pulse 27 L 11/12/17 16:50 Resp 23 11/12/17 12:00 BP 38/22 L 11/12/17 16:50 Pulse Ox 96 11/12/17 16:50 - Labs Result Diagrams: 11/12/17 16:15 11/12/17 12:08 Labs: Laboratory Results - last 24 hr 11/11/17 11/11/17 11/12/17 16:20 19:20 04:20 WBC 13.6 H D RBC 2.35 L Hgb 8.0 L Hct 23.4 L MCV 99.5 H D MCH 34.2 H MCHC 34.4 RDW 20.5 H Plt Count 75 L D MPV 9.8 Neut % (Auto) 77.6 H Lymph % (Auto) 14.0 L [place] % (Auto) 7.2 Eos % (Auto) 0.9 Baso % (Auto) 0.3 Neut # (Auto) 10.6 H Lymph # (Auto) 1.9 [place] # (Auto) 1.0 H Eos # (Auto) 0.1 Baso # (Auto) 0.0 PT INR APTT pCO2 pO2 HCO3 ABG pH ABG Total CO2 ABG O2 Saturation ABG Base Excess Jenaro Test ABG Potassium A-a O2 Difference Glucose Lactate Vent Mode Mechanical Rate FiO2 Tidal Volume PEEP Crit Value Called To Crit Value Called By Crit Value Read Back Blood Gas Notified Time Sodium Potassium Chloride Carbon Dioxide Anion Gap BUN Creatinine Est GFR ( Amer) Est GFR (Non-Af Amer) Random Glucose Hemoglobin A1c Lactic Acid Calcium Total Bilirubin AST ALT Alkaline Phosphatase Total Protein Albumin Globulin Albumin/Globulin Ratio Arterial Blood Potassium Blood Type B NEGATIVE Blood Type Confirm B NEGATIVE Antibody Screen Negative Crossmatch See Detail BBK History Checked No verified bt 11/12/17 11/12/17 11/12/17 04:20 05:00 12:08 WBC RBC Hgb Hct MCV MCH MCHC RDW Plt Count MPV Neut % (Auto) Lymph % (Auto) [place] % (Auto) Eos % (Auto) Baso % (Auto) Neut # (Auto) Lymph # (Auto) [place] # (Auto) Eos # (Auto) Baso # (Auto) PT 13.2 H INR 1.2 APTT 22.6 L pCO2 pO2 HCO3 ABG pH ABG Total CO2 ABG O2 Saturation ABG Base Excess Jenaro Test ABG Potassium A-a O2 Difference Glucose Lactate Vent Mode Mechanical Rate FiO2 Tidal Volume PEEP Crit Value Called To Crit Value Called By Crit Value Read Back Blood Gas Notified Time Sodium 141 Potassium 4.0 Chloride 113 H Carbon Dioxide 22 Anion Gap 10 BUN 26 H Creatinine 0.7 L Est GFR ( Amer) > 60 Est GFR (Non-Af Amer) > 60 Random Glucose 148 H Hemoglobin A1c 5.6 Lactic Acid Calcium 6.9 L Total Bilirubin 1.0 AST 77 H D ALT 43 Alkaline Phosphatase 47 Total Protein 5.3 L Albumin 2.5 L Globulin 2.8 Albumin/Globulin Ratio 0.9 L Arterial Blood Potassium Blood Type Blood Type Confirm Antibody Screen Crossmatch BBK History Checked 11/12/17 11/12/17 11/12/17 12:08 12:08 14:30 WBC RBC Hgb Hct MCV MCH MCHC RDW Plt Count MPV Neut % (Auto) Lymph % (Auto) [place] % (Auto) Eos % (Auto) Baso % (Auto) Neut # (Auto) Lymph # (Auto) [place] # (Auto) Eos # (Auto) Baso # (Auto) PT INR APTT pCO2 80 H* pO2 81 HCO3 9.7 L* ABG pH 6.83 L* ABG Total CO2 15.8 L ABG O2 Saturation 95.3 ABG Base Excess -19.5 L Jenaro Test Yes ABG Potassium 4.2 A-a O2 Difference 532.0 Glucose 239 H Lactate 17.2 H* Vent Mode Ambu bag Mechanical Rate FiO2 100.0 Tidal Volume PEEP Crit Value Called To Dr smiley Crit Value Called By Rt Crit Value Read Back Y Blood Gas Notified Time 1427 Sodium 138 144.0 Potassium 3.4 L Chloride 112 H 107.0 Carbon Dioxide 23 Anion Gap 6 L BUN 19 Creatinine 0.7 L Est GFR ( Amer) > 60 Est GFR (Non-Af Amer) > 60 Random Glucose 145 H Hemoglobin A1c Lactic Acid 1.4 Calcium 7.1 L Total Bilirubin AST ALT Alkaline Phosphatase Total Protein Albumin Globulin Albumin/Globulin Ratio Arterial Blood Potassium 4.2 Blood Type Blood Type Confirm Antibody Screen Crossmatch BBK History Checked 11/12/17 11/12/17 16:15 16:18 WBC 5.8 D RBC 2.22 L Hgb 7.1 L Hct 21.6 L MCV 97.4 H D MCH 32.0 H MCHC 32.8 L RDW 18.0 H Plt Count 46 L D MPV Neut % (Auto) Lymph % (Auto) [place] % (Auto) Eos % (Auto) Baso % (Auto) Neut # (Auto) Lymph # (Auto) [place] # (Auto) Eos # (Auto) Baso # (Auto) PT INR APTT pCO2 59 H pO2 84 HCO3 8.4 L* ABG pH 6.92 L* ABG Total CO2 13.9 L ABG O2 Saturation 99.3 H ABG Base Excess -20.8 L Jenaro Test Yes ABG Potassium 5.4 H A-a O2 Difference 555.0 Glucose 379 H Lactate 14.7 H* Vent Mode Prvc/ac Mechanical Rate 22 FiO2 100.0 Tidal Volume 500 PEEP 5 Crit Value Called To sahil Smiley md Crit Value Called By Gwendolyn little Crit Value Read Back Y Blood Gas Notified Time 1626 Sodium 139.0 Potassium Chloride 106.0 Carbon Dioxide Anion Gap BUN Creatinine Est GFR ( Amer) Est GFR (Non-Af Amer) Random Glucose Hemoglobin A1c Lactic Acid Calcium Total Bilirubin AST ALT Alkaline Phosphatase Total Protein Albumin Globulin Albumin/Globulin Ratio Arterial Blood Potassium 5.4 H Blood Type Blood Type Confirm Antibody Screen Crossmatch BBK History Checked Assessment & Plan - Assessment and Plan (Free Text) 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
[2017-11-12] MEDS ORDERED: EPINEPHrine- 1 MG in Sodium Chloride 0.9% 250 ML IVPB ONE (18:19)
[2017-11-12] MEDS ORDERED: DEXTROSE 5% IV SCH (18:45)
[2017-11-12] MEDS ORDERED: WATER IV SCH (18:45)
[2017-11-12] MEDS ORDERED: ISOPROTERENOL HCL IV SCH (18:45)
--- NOTE | 2017-11-12 22:48 | CP.CCUPN ---
CCU Subjective - Physician Review Subjective (Free Text): Code Mo Note #2 and Transvenous Temporary Pacemaker Insertion: Second Code Mo called for sudden V Fib as bedside EGD started: CPR / ACLS started immediately. High quality chest compressions ensured. Successive shocks delivered at the appropriate intervals in-between chest compressions, one at 100J, second at 150J and third at 200J, with no initial success. Amiodarone 300mg IV bolus given with successful conversion to a wide complex bradycardic rhythm at 38/min. Subsequent more doses of Epi and Atropine given in attempt to convert to a perfusing rhythm which was successful but not sustained for more than a few minutes. Ongoing OGT suctioning performed which revealed persistent and constant flow of bright red blood. Additional blood units given for total of 11 PRBC units and 2 units FFP. 1000mg Tranxemic acid dose also given IV in attempt to control bleeding. Persistent bradycardia with HR varying from 38-47 noted, all without palpable pulses in PEA. Additional vasopressor infusion started with Epinephrine drip. All vasopressors at this point maintained at free flow rate. Final decision made to place Temporary transvenous pacemaker. Under sterile prep, an 8F cordis placed via Left subclavian vein and 7F pacer wire passed to approx 25-30 cm darling with good capture conformed at as low as 2 MA, with set rate of 70/min and max sense settings. Again , palpable pulses were obtained at paced rate of 70/ min, but not sustainable for more than 3-4 minutes before deteriorating to VFib again. More successive, escalating defibrillations administered without success. Chemical treatment for hyperkalemia also rendered. After more than 70 mins of resuscitation time, patient pronounced at 7:10PM. Family outside of room and notified patient' s sister Shea, and notified Mother via telephone, then later brother Oziel after his arrival to ICU. Consent for limited autopsy to chest and abdomen refused by the Mother. EDRS# [id number]
--- NOTE | 2017-11-12 22:49 | CP.PCM.PRO ---
Pronouncement of Note - Clinical Findings Physical Exam: No Response Verbal/Painful Stimuli, Absent Peripheral Pulses{ Carotid & Femoral}, Absent Heart & Breath Sounds, No Pupillary Light Reflex, No Corneal Reflex, Pupils Fixed & Dilated, Absence of Vital Signs - Pronouncement Time Time of Pronouncement of : 19:10 - Notifications Pronouncement Notifications: Family Notified, Atending Notified Tail Puller Notified: No - Autopsy Autopsy Requested: Yes (Consent refused by family) - [place] [id number]
--- NOTE | 2017-11-19 13:18 | CP.PCM.PCO ---
DATE: 11/19/2017 Physician Query: QUERY FOR ACUTE BLOOD LOSS ANEMIA Physician Response : Acute Anemia 2 to GI bleed Maikel LINARES, Yovani WHITAKER
== END 2017-11-12 23:00 | DRG 369 ==
LOC: H.ER 15:57 → H.ERHOLD 17:10 → H.ICU/CCU 21:21
PROVIDERS: ADMIT Family Medicine Geriatric Medicine; ATTEND Family Medicine Geriatric Medicine
PROC: 30233L1 Transfusion of Nonautologous Fresh Plasma into Peripheral Vein, Percutaneous Approach (ICD-10-PCS; 2017-11-11)
PROC: 3E033GC Introduction of Other Therapeutic Substance into Peripheral Vein, Percutaneous Approach (ICD-10-PCS; 2017-11-11)
PROC: 3E0G8TZ Introduction of Destructive Agent into Upper GI, Via Natural or Artificial Opening Endoscopic (ICD-10-PCS; principal; 2017-11-11 19:00)
PROC: 30233N1 Transfusion of Nonautologous Red Blood Cells into Peripheral Vein, Percutaneous Approach (ICD-10-PCS; 2017-11-12)
PROC: 06HY33Z Insertion of Infusion Device into Lower Vein, Percutaneous Approach (ICD-10-PCS; 2017-11-12)
PROC: 5A1213Z Performance of Cardiac Pacing, Intermittent (ICD-10-PCS; 2017-11-12)
PROC: 04HY32Z Insertion of Monitoring Device into Lower Artery, Percutaneous Approach (ICD-10-PCS; 2017-11-12)
PROC: 0CJS8ZZ Inspection of Larynx, Via Natural or Artificial Opening Endoscopic (ICD-10-PCS; 2017-11-12)
PROC: 5A12012 Performance of Cardiac Output, Single, Manual (ICD-10-PCS; 2017-11-12)
PROC: 0BH17EZ Insertion of Endotracheal Airway into Trachea, Via Natural or Artificial Opening (ICD-10-PCS; 2017-11-12)
PROC: 5A1935Z Respiratory Ventilation, Less than 24 Consecutive Hours (ICD-10-PCS; 2017-11-12)
DX: K22.6 Gastro-esophageal laceration-hemorrhage syndrome (principal); D62 Acute posthemorrhagic anemia; K29.51 Unspecified chronic gastritis with bleeding; E87.5 Hyperkalemia; I49.01 Ventricular fibrillation; I95.1 Orthostatic hypotension; F10.20 Alcohol dependence, uncomplicated; R73.9 Hyperglycemia, unspecified; R40.2434 Glasgow coma scale score 3-8, 24 hours or more after hospital admission; I10 Essential (primary) hypertension; Z91.14 Patient's other noncompliance with medication regimen; F17.210 Nicotine dependence, cigarettes, uncomplicated